=== PATIENT | male | born 1990 | race Caucasian/White ===

== ENCOUNTER 2023-08-14 16:20 | Emergency (ER) | payer SELFPAY ==
[2023-08-14 16:23] VITALS: BP 155/98; BMI 22.9
--- NOTE | 2023-08-14 18:14 | ED.GENMED ---
History of Present Illness
General
Chief Complaint: Foreign Body Removal
Source: patient
Exam Limitations: none
Time Seen by Provider: 08/14/23 16:53
Nursing documentation reviewed up to this point in time: agreed with
History of Present Illness
History of Present Illness:
33-year-old male presenting to the emergency department today with concerns of small cut to the right middle finger that occurred when he was fixing a phone while working at the [employer]. Denies additional concerns does have a small cut to the
area. Claims that he is up-to-date with tetanus shots no history of infections or immunosuppressive history.
Past History
Past History
ED Past Medical History: None
ED Past Surgical History: None
Social History
Tobacco: Non-smoker
Alcohol: None
Drug: None
Personal: Single
Living: with family
Review of Systems
Review of Systems
Allergies reviewed?: Yes
All Other Systems: ROS reviewed and negative except as documented in HPI and ROS
Phy Exam
Physical Exam
Physical Exam:
GENERAL: Alert , in no apparent distress
EYE: pupils equal and reactive
NECK: Supple, no significant adenopathy.
ENT: o/p clr, mmm.
CARDIAC: Regular rate and rhythm .
LUNGS: Clear breath sounds bilaterally, no acute respiratory distress, no wheezes/rales/rhonchi
ABDOMEN: Soft, without focal tenderness, no r/g, no cvat
NEUROLOGICAL: Alert and oriented, no focal neuro deficits
SKIN: Small pinpoint sized cut to the right middle finger area overlying the middle phalanx. Warm and dry, skin intact.
MUSCULOSKELETAL: No edema, well perfused.
PSYCH: Normal and appropriate interaction.
Course
Orders/Labs/Results
Orders:
Orders
08/14/23 16:45
Finger(s)/Thumb 2 View Rt [CR Finger(s)/thumb Min 2 Vw Rt] Urgent
Comment:
Reason For Exam: foreign body R middle
Indicate Which Finger:: Middle Finger
Vital Signs
Initial and Last Documented VS:
Initial Vital Signs
Temp Pulse Resp BP Pulse Ox
98.2 F 97 16 155/98 99
08/14/23 16:23 08/14/23 16:23 08/14/23 16:23 08/14/23 16:23 08/14/23 16:23
Last Documented Vital Signs
Temp Pulse Resp BP Pulse Ox
98.2 F 97 16 155/98 99
08/14/23 16:23 08/14/23 16:23 08/14/23 16:23 08/14/23 16:23 08/14/23 16:23
MDM/Problems Addressed
MDM/Problems Addressed:
33-year-old male presenting to the emergency department today with concerns of a small cut from broken glass while fixing a phone at [employer] prior to arrival. Does have a small cut mid right middle finger. X-ray without signs of foreign body
examination does not reveal foreign body. Patient otherwise was given a Band-Aid advised to return for any worsening symptoms.
*Critical Care Note
Total Time (30-74mins, 75-104mins- exclusive of procedures): Not Applicable
ED Attending Note
-
Portions of this chart may have been created with voice recognition software.� Occasional wrong word or��sound alike� substitutions may have occurred due to the inherent limitations of voice recognition software.
Discharge Plan
Departure
Patient Disposition: Home (Routine Discharge)
Date of Disposition: 08/14/23
Time of Disposition: 18:15
Patient with high blood pressure during this ER visit?: No
Condition: Good
Covid-19: Not Applicable
Discharge Problem:
Cut of finger
Instructions: Laceration
Prescriptions:
No Action
No Current Medications
0
Referrals:
UNKNOWN - PT DOES,NOT KNOW [Family Provider] -
Activity Restrictions/Additional Instructions:
You came to the emergency department today with concerns of a cut to your finger. No evidence of foreign body. Please keep the area clean covered and return for any worsening, new or concerning symptoms.
Interventions
Interventions:
*Risk Screen - Suicide Last Done: 08/14/23 16:23
*Neglect/Abuse Screening Last Done: 08/14/23 16:23
Discharge Date and Time
Print Language: MAORI
== END 2023-08-14 18:25 | disposition home or self-care (01) ==
LOC: EMR 16:20
PROVIDERS: EMERGENCY PHYSICIAN Emergency Medicine
DX: S61.212A Laceration without foreign body of right middle finger without damage to nail, initial encounter (principal); W25.XXXA Contact with sharp glass, initial encounter; Y99.0 Civilian activity done for income or pay
CPT/HCPCS: 99283; 73140